=== PATIENT | male | born 1965 ===

== ENCOUNTER 2025-06-07 12:39 | Emergency (ER) | payer OTHER, SELFPAY ==
[2025-06-07] VITALS (17 sets, daily range): BP systolic 156–182; BP diastolic 93–121; PULSE 63–70; RESP 16–31; TEMP 36.9; O2SAT 94–98; BMI 30.5
--- NOTE | 2025-06-07 13:26 | EKG_ITS ---
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
[2025-06-07 14:56] LABS: Add Manual Diff / Slide Review NO; Hematocrit 35.9 % (41-53); Hemoglobin 11.6 g/dL (13.5-17.5); Lymphocytes Absolute Auto 1900 /uL (1100-4500); Mean Corpuscular HGB Conc 32.4 % (30-36); Mean Corpuscular Hemoglobin 24.8 PG (26-34); Mean Corpuscular Volume 76.6 fL (80-100); Platelet Count 320 X10^3/uL (150-400)
[2025-06-07 15:10] LABS: Alanine Aminotransferase 23 IU/L (<50); Albumin 4.4 g/dL (3.5-5.0); Albumin Globulin Ratio 1.5 (1.0-2.8); Alkaline Phosphatase 75 U/L (38-126); Blood Urea Nitrogen 13 mg/dL (9-20); Calcium 8.7 mg/dL (8.4-10.2); Carbon Dioxide 22 mmol/L (22-32); Chloride 108 mmol/L (98-107); Estimated Glomerular Filt Rate > 60 mL/min (>60); Globulin 2.9 g/dL (1.7-4.1); Glucose 99 mg/dL (70-99); HEMOLYSIS < 15 (0-50); Lipase 113 U/L (23-300); Magnesium 1.9 mg/dL (1.6-2.3); Potassium 4.5 mmol/L (3.4-5.1); Sodium 137 mmol/L (137-145); Total Protein 7.3 g/dL (6.3-8.2)
[2025-06-07 15:21] LABS: NT-proBNP (BNP-Adult 18+) 155 pg/mL (<125); Troponin I < 0.012 ng/mL (0.01-0.034)
--- NOTE | 2025-06-07 15:33 | PC.NURSE ---
Pt typically on 3-4L NC. Denies any worsening symptoms. Reports he is here because he wants to be able to get his surgery that is needed in the future
--- NOTE | 2025-06-07 17:31 | ED_ITS ---
HPI - General Adult General Chief complaint: Hypertension Stated complaint: High BP 174/102, brought from [facility] Time Seen by Provider: 06/07/25 13:25 Source: patient Mode of arrival: Wheelchair History of Present Illness HPI narrative: 59-year-old M with medical history of severe COPD pending lung reduction surgery at . Severe COPD, on 3 L of nasal cannula at baseline, presenting because he was refused from his pulmonary rehab for 2 days in a row for hypertension. Patient states he has never had to take medication for hypertension before. D enies fevers, chills, nausea, vomiting, diarrhea, abdominal pain, chest pain, shortness of breath, dizziness, headache, or urinary symptoms. Patient states there is no acute worsening of his shortness of breath. Related Data Previous Rx's ?Medication ?Instructions ?Recorded amlodipine 5 mg tablet 5 mg PO DAILY #30 tabs 06/07 losartan 25 mg tablet 25 mg PO DAILY #30 tabs 05/20 Allergies Allergy/AdvReac Type Severity Reaction Status Date / Time No Known Drug Allergies Allergy Verified 06/07/25 12:55 Review of Systems Review of Systems ROS Unobtainable: All systems reviewed & are unremarkable except as noted in HPI and below Exam Narrative Exam Narrative: Patient with very mild increased work of breathing, baseline per patient. Patient known to have severe COPD. Initial Vital Signs Initial Vital Signs: Vital Signs Temperature 98.5 F 06/07/25 12:53 Pulse Rate 68 06/07/25 12:53 Respiratory Rate 20 06/07/25 12:53 Blood Pressure 176/104 H 06/07/25 12:53 Pulse Oximetry 98 06/07/25 12:53 Oxygen Delivery Method Nasal Cannula 06/07/25 12:53 Oxygen Flow Rate 3 06/07/25 12:53 Const General: cooperative, well developed and well hydrated Nutritional Appearance: average body habitus [facility] Head: normal to inspection Ears: external ears normal Nose: external nose normal and nares normal Face and sinus: sinuses nontender, face symmetric, ecchymosis not on the right, not on the left and not bilaterally, erythema not on the right, not on the left and not bilaterally and edema not on the right, not on the left and not bilaterally Mouth: lip normal Eyes General: Yes appearance normal, both eyes and all related structures Eyelids: eyelids normal Sclera: sclerae normal Pupils: PERRL Neck Neck: normal visual inspection Resp Effort & Inspection: normal respiratory effort and able to speak in complete sentences Cardio Rate: regular rate Rhythm: regular rhythm Pulses: radial pulses present GI Inspection: normal to inspection and non-distended General: bimanual renal exam normal bilaterally Back/Spine/Pelvis Back: normal to inspection Skin General: no rashes or lesions noted Neuro General: patient alert, patient awake, patient oriented x3, gait normal, moves all extremities, normal light touch, pain and propioception, no focal motor deficits and CN's II-XI intact bilaterally Cognition: normal cognition Speech: speech normal Gait: normal gait Motor: muscle tone normal throughout Sensory Exam: no sensory deficits noted Extrem General: normal to inspection Psych Appearance: grossly normal Mental Status: mental status grossly normal Speech and Movement: speech and movement normal Mood: congruent mood Attitude: cooperative Thought Process: normal Thought Content: normal Judgment: judgment good Course Orders Ordered: ED Orders 06/07/25 13:26 EKG-12 Lead Stat 06/07/25 14:49 Complete Blood Count AUTO DIFF Stat Comprehensive Metabolic Panel Stat Lipase Stat Magnesium Stat NT-proBNP (BNP-Adult 18+) Stat Troponin I Stat Discontinued Medications Amlodipine Besylate (Amlodipine 5 Mg Tablet) 10 mg PO NOW ONE Stop: 06/07/25 15:50 Last Admin: 06/07/25 15:59 Dose: 10 mg Documented By: KANDY Losartan Potassium (Losartan 25 Mg Tablet) 25 mg PO NOW ONE Stop: 06/07/25 17:28 Vital Signs Vital signs: Vital Signs - 8 hr 06/07/25 12:53 06/07/25 15:18 06/07/25 15:19 Temperature 98.5 F Pulse Rate 68 66 67 Respiratory Rate 20 Blood Pressure 176/104 H Pulse Oximetry 98 98 98 Oxygen Delivery Method Nasal Cannula Oxygen Flow Rate 3 06/07/25 15:19 06/07/25 15:30 06/07/25 15:30 Temperature Pulse Rate 66 Respiratory Rate Blood Pressure 182/121 H 170/98 H Pulse Oximetry 97 Oxygen Delivery Method Oxygen Flow Rate 06/07/25 15:58 06/07/25 15:58 06/07/25 16:00 Temperature Pulse Rate 68 Respiratory Rate 23 Blood Pressure 157/105 H 156/103 H Pulse Oximetry 97 Oxygen Delivery Method Oxygen Flow Rate 06/07/25 16:00 06/07/25 16:30 06/07/25 16:31 Temperature Pulse Rate 69 65 66 Respiratory Rate 20 17 18 Blood Pressure Pulse Oximetry 97 97 97 Oxygen Delivery Method Oxygen Flow Rate 06/07/25 16:31 06/07/25 16:45 06/07/25 16:45 Temperature Pulse Rate 68 Respiratory Rate 31 H Blood Pressure 166/96 H 167/106 H Pulse Oximetry 97 Oxygen Delivery Method Oxygen Flow Rate 06/07/25 17:00 Temperature Pulse Rate 63 Respiratory Rate 23 Blood Pressure Pulse Oximetry 98 Oxygen Delivery Method Oxygen Flow Rate Medical Decision Making Lab Data 06/07/25 14:49 06/07/25 14:49 Labs: Lab Results 06/07/25 Range/Units 14:49 WBC 8.0 (4.5-11.0) X10^3/uL RBC 4.69 (4.5-5.9) X10^6/uL Hgb 11.6 L (13.5-17.5) g/dL Hct 35.9 L (41-53) % MCV 76.6 L (80-100) fL MCH 24.8 L (26-34) PG MCHC 32.4 (30-36) % RDW 18.5 H (11.6-14.8) % Plt Count 320 (150-400) X10^3/uL Neut % (Auto) 65.2 (50-75) % Lymph % (Auto) 23.2 L (25-40) % [place] % (Auto) 8.7 (3-14) % Eos % (Auto) 2.1 (2-4) % Baso % (Auto) 0.8 (0-2) % Neut # (Auto) 5200 (3024-8369) /uL Lymph # (Auto) 1900 (8385-0923) /uL [place] # (Auto) 700 (0-900) /uL Eos # (Auto) 200 (0-450) /uL Baso # (Auto) 100 (0-100) /uL Sodium 137 (137-145) mmol/L Potassium 4.5 (3.4-5.1) mmol/L Chloride 108 H (98-107) mmol/L Carbon Dioxide 22 (22-32) mmol/L BUN 13 (9-20) mg/dL Creatinine 0.84 (0.66-1.25) mg/dL Estimated GFR > 60 (>60) mL/min BUN/Creatinine Ratio 15.5 (6-22) Glucose 99 (70-99) mg/dL Calcium 8.7 (8.4-10.2) mg/dL Magnesium 1.9 (1.6-2.3) mg/dL Total Bilirubin 0.3 (0.2-1.3) mg/dL AST 27 (17-59) IU/L ALT 23 (<50) IU/L Alkaline Phosphatase 75 (38-126) U/L Troponin I < 0.012 (0.01-0.034) ng/mL NT-Pro-B Natriuret Pep 155 H (<125) pg/mL Total Protein 7.3 (6.3-8.2) g/dL Albumin 4.4 (3.5-5.0) g/dL Globulin 2.9 (1.7-4.1) g/dL Albumin/Globulin Ratio 1.5 (1.0-2.8) Lipase 113 (23-300) U/L Urine Dip Bedside Urine Glucose Negative Bedside Urine Bilirubin - Negative Bedside Urine Ketone - Negative Urine Specific [place] 1.015 Bedside Urine Occult Blood - Negative Bedside Urine pH 7.0 Bedside Urine Protein - Negative Bedside Urine Urobilinogen - Negative Bedside Urine Nitrite - Negative Bedside Urine Leukocytes - Negative Esterase Point of care testing: Urine Dip Bedside Urine Glucose Negative Bedside Urine Bilirubin - Negative Bedside Urine Ketone - Negative Urine Specific [place] 1.015 Bedside Urine Occult Blood - Negative Bedside Urine pH 7.0 Bedside Urine Protein - Negative Bedside Urine Urobilinogen - Negative Bedside Urine Nitrite - Negative Bedside Urine Leukocytes - Negative Esterase ECG Data Attestation: I personally reviewed and interpreted this ECG as follows: Interpretation: [1409] EKG is normal sinus rhythm rate [62] and free of any signs of ischemia or ectopy. No ST segmental elevation or depression. No T wave inversions MDM Narrative Medical decision making narrative: Pt presents w/hypertension, chronic shortness of breath. Chest x-ray for consideration of pneumonia, pneumothorax, or congestive heart failure. EKG, troponin in consideration of arrhythmia, Acute Coronary Syndrome, Acute Myocardial Infarction. Check labs due to consideration of anemia, electrolyte abnormalities, including hypokalemia, hyperkalemia, hyponatremia, hypernatremia, hyperglycemia, hypoglycemia. No CT chest indicated as I considered but do not clinically suspect aortic dissection/pulmonary embolism. Patient is at his respiratory baseline. Does not is not symptomatic from his hypertension is here because he has not been able to attend his pulmonary rehab class 2 times due to being eligible due to initial hypertension. Patient will be sent home on 2 antihypertensives. Discharge Plan Departure Patient Disposition: Home Clinical Impression: Hypertensive urgency Instructions: DI for High Blood Pressure Activity Restrictions/Additional Instructions: Please return to ED if you have worsening chest pain, shortness of breath, dizziness, nausea, passing out, or any other concern. Prescriptions: New amlodipine 5 mg tablet 5 mg PO DAILY Qty: 30 0RF Rx Instructions: Okay to take extra dose if blood pressure remains elevated above 150 systolic 40 minutes after 1st dose losartan 25 mg tablet 25 mg PO DAILY Qty: 30 0RF Rx Instructions: Okay to take extra dose if blood pressure remains above 150 systolic 40 minutes after 1st dose Referrals: Yuli Tony MD [Primary Care Provider, Medical] Stand Alone Forms: Patient Portal/API
[2025-06-07] MEDS: LOSARTAN 25 MG TABLET PO (17:42)
== END 2025-06-07 18:37 | disposition home or self-care (01) ==
PROVIDERS: Emergency Provider Emergency Medicine; PCP Family Medicine
DX: I16.0 Hypertensive urgency (principal)
CPT/HCPCS: 36415; 80053; 81003; 83690; 83735; 83880; 84484; 85025; 93005; 93010; 99284

== ENCOUNTER 2025-07-02 12:30 | Outpatient (RCR) | payer OTHER, SELFPAY | END 2025-07-16 14:30 | LOC: PUL 12:30 | PROVIDERS: PCP Family Medicine; Referring Provider Internal Medicine Pulmonary Disease; Visit Provider Internal Medicine Pulmonary Disease | DX: J43.8 Other emphysema (principal) | CPT/HCPCS: 94626 ==